=== PATIENT | male | born 1990 | race Caucasian/White ===

== ENCOUNTER 2018-01-20 14:33 | Day surgery (SDC) | payer OTHER ==
[~2018-01-20 14:33] MED LIST: ATROPINE 1 MG/10 ML SYRINGE IV; DIPHENHYDRAMINE 50 MG INJ IV; EPHEDrine SULFATE 50 MG/5 ML SYG IV; FENTAnyl 50 MCG/ML VIAL IV; HYDROmorphONE (0.2 MG/ML) 10ML SYG IV; LABETALOL HCL 20MG INJ IV; MEPERIDINE 25 MG INJ IV; MIDAZOLAM 1 MG/ML 2 ML INJ IV; ONDANSETRON 4 MG INJ IV; OXYCODONE/ACETAMINOPHEN (5/325) TAB PO; hydrALAzine 20 MG INJ IV; morphine (1 MG/ML) 10ML SYRINGE IV
[2018-01-20] MEDS ORDERED: GLYCOPYRROLATE 0.4 MG INJ (18:11)
[2018-01-20] MEDS ORDERED: NEOSTIGMINE 3 MG/3 ML SYRINGE (18:11)
[2018-01-20] MEDS ORDERED: PROPOFOL 20 ML (18:11)
[2018-01-20] MEDS ORDERED: ROCURONIUM 50 MG INJ (18:11)
[2018-01-20] MEDS ORDERED: FENTAnyl 50 MCG/ML VIAL (18:11)
[2018-01-20] MEDS ORDERED: ONDANSETRON 4 MG INJ (18:12)
[2018-01-20] MEDS ORDERED: MIDAZOLAM 1 MG/ML 2 ML INJ (18:12)
[2018-01-20] MEDS: POLYMYXIN/BACITRACIN 1L IRRIG (18:33)
[2018-01-20] MEDS: BUPIVACAINE 0.5% (SDV) 30 ML INJ (18:33)
[2018-01-20] MEDS ORDERED: VANCOMYCIN 1 GM (PMX) 250 ML (19:07)
[2018-01-20] MEDS: OXYCODONE/ACETAMINOPHEN (5/325) TAB PO (20:08)
== END 2018-01-20 21:30 | disposition home or self-care (01) ==
LOC: SDS 14:33
DX: M79.5 Residual foreign body in soft tissue (principal); L90.5 Scar conditions and fibrosis of skin
CPT/HCPCS: 11426; 87070; 87102; 87116; 88300; 88307